=== PATIENT | male | born 1935 | race Caucasian/White ===

== ENCOUNTER 2017-07-08 00:36 | Inpatient (IN) | payer MEDICARE, BC, MEDICAID ==
[2017-07-08 01:22] LABS: Hematocrit 38.6 % (42.0-52.0); Hemoglobin 13.7 gm/dL (13.5-18.0); Mean Cell Volume 93.2 fl (78-100); Mean Corpuscular Hemoglobin 33.1 pg (27-31); Mean Corpuscular Hgb Conc 35.5 g/dl (32-36); Mean Platelet Volume 9.5 fl (6.0-9.5); Neutrophil # 7.4 K/mm3 (1.3-6.0); Neutrophil % 78.4 % (42-75.0); Platelet Count 151 K/mm3 (150-450); Red Blood Count 4.14 M/mm3 (4.7-6.0); Red Cell Distribution Width 13.6 % (11.5-14.0); White Blood Count 9.4 K/mm3 (4.0-10.5)
[2017-07-08 01:35] LABS: Prothrombin Time (Patient) 10.7 Seconds (9.0-11.0)
[2017-07-08 01:37] LABS: Albumin * 3.6 gm/dl (3.4-5.0); Anion Gap 14.9 mmol/L (6.8-13.8); BUN/Creatinine Ratio 16.8 (9.0-21.6); Bilirubin, Total 1.1 mg/dL (0.0-1.1); Ca. Corrected For Albumin 8.6 mg/dL (8.4-10.2); Calcium * 8.6 mg/dL (7.9-10.9); Carbon Dioxide 23.8 mmol/L (24-32.6); INR 1.07 INR (0.90-1.10); Partial Thrombolplastin Time 24.7 Seconds (24-32); Potassium 3.7 mmol/L (3.4-4.6); Total Protein 7.6 gm/dL (6.2-8.2)
--- NOTE | 2017-07-08 01:44 | ERNOTE ---
Lower Extremity HPI - Narrative Date of Service: 07/08/17 - General Lower Extremities Pain: hip: right Time Seen by Provider: 07/08/17 01:00 Source: patient, EMS Exam Limitations: no limitations - Immun/Allergies/Home Medications Immunizations: IMMUNIZATION HX Immunizations Up to Date Yes History of Influenza Vaccine Yes Hx Pneumococcal Vaccination Yes Allergies/Adverse Reactions: Allergies Allergy/AdvReac Type Severity Reaction Status Date / Time No Known Allergies Allergy Unverified 07/08/17 00:47 Home Medications: HOME MEDICATIONS Esomeprazole Magnesium [Nexium] 40 mg PO 07/08/17 [Last Taken Unknown] Gemfibrozil [Lopid] 600 mg PO BID 07/08/17 [Last Taken Unknown] HYDROcodone/ACETAMINOPHEN [Hydrocodon-Acetaminoph 7.5-325] 1 each PO 07/08/17 [ Last Taken Unknown] Hydrochlorothiazide 12.5 mg PO 07/08/17 [Last Taken Unknown] Ibuprofen [Motrin] 600 mg PO 07/08/17 [Last Taken Unknown] Levothyroxine Sodium [Levo-T] 112 mcg PO 07/08/17 [Last Taken Unknown] Sennosides [Senna Lax] 8.6 mg PO 07/08/17 [Last Taken Unknown] Sildenafil Citrate [Viagra] 100 mg PO 07/08/17 [Last Taken Unknown] Simvastatin 20 mg PO 07/08/17 [Last Taken Unknown] Valsartan/Hydrochlorothiazide [Diovan Hct 320-25 mg Tablet] 1 each PO 07/08/17 [ Last Taken Unknown] - History of Present Illness Narrative: patient [place] and tripped on curb hit head and right hip, sustained fracture hip and contusiion to head Occurred: this evening Location of Incident: other - street Method of Injury: Reports: fell, direct blow Reason for Fall: Reports: slipped, tripped Loss of Consciousness: Reports: no loss of consciousness Modifying Factors - (Improves): Reports: rest Modifying Factors - (Worsens): Reports: pain medication Associated Symptoms: Reports: unable to bear weight Other Injuries: Reports: head Subsequent Symptoms: Reports: other - none Prior Treament: Reports: recently seen, treated by physician, other - transferred from [facility] Review of Systems - Narrative Narrative: unremarkable - Review of Systems Constitutional: Present: See HPI EYE: Present: see HPI ENT: Present: See HPI, other - contusiion to right forhead Respiratory: Present: no symptoms reported Cardiology: Present: no symptoms reported Gastrointestinal/Abdominal: Present: no symptoms reported Genitourinary: Present: no symptoms reported Musculoskeletal: Present: See HPI Skin: Present: See HPI Neurological: Present: no symptoms reported Endocrine: Present: no symptoms reported Hematologic/Lymphatic: Present: no symptoms reported Psych: Present: no symptoms reported All Other Systems: All systems neg except as marked - Narrative Narrative: unremarkable - Patient's Past Medical History Patient History - Medical: GERD, Hypothyroidism Patient History - Cardiac/Respiratory: Hypertension, Hyperlipidemia Patient History - Cancer: No Hx of Cancer Patient History - Surgical Procedures: Total Hip Replacement, Total Knee Replacement, Orthopedic Patient History - Other: None - Family History Family History:: no untoward family reactions to anesthesia, no familial bleeding tendencies, no family history of clotting disorders, no family history of premature - Social History Living Situations: alone Psych History: No pertinent hx Smoking Status: Former smoker Have you smoked in the past 12 months: No Do you dip or chew tobacco: No Patient requests Smoking Cessation Consult: No Initiate information on Smoking Cessation: No Alcohol Use: occasionally Drug Use: none - Immunizations Immunizations Up to Date: Yes Hx Pneumococcal Vaccination: Yes History of Influenza Vaccine: Yes Physical Exam - Physical Exam General Appearance: Present: mild distress Head Exam: Present: contusions, other - contusion to right forhead Eye Exam: Normal inspection: bilateral, PERRL: bilateral, EOMI: bilateral Ears, Nose, Throat: Present: normal ENT inspection Neck: Present: normal inspection, nontender Respiratory: Present: no respiratory distress, normal breath sounds, no accessory muscle use, chest nontender, lungs clear Cardiovascular/Chest: Present: regular rate, rhythm, no murmur, normal peripheral pulses Peripheral Pulses: N=norm/S=strong/W=weak/B=bound/A=absent: Carotid (R): Normal , Carotid (L): Normal, Radial (R): Normal, Radial (L): Normal, Femoral (R): Normal, Femoral (L): Normal, Dorsalis-pedis (R): Normal, Dorsalis-pedis (L): Normal Gastrointestinal/Abdominal: Present: normal bowel sounds, nontender, nondistended, soft, no organomegaly Back Exam: Present: normal inspection, normal range of motion, no CVA tenderness , no vertebral tenderness Extremity Exam: Present: normal except - - pain and tenderness to right greater trochanter no deformity noted Neurological Exam: Present: alert, oriented, normal mood/affect, no motor/ sensory deficits DTR: N=norm/NB=norm/brisk/A=abs/DD=dull/dimin/HC=hyperactive: Bicep (R): Normal , Bicep (L): Normal, Tricep (R): Normal, Tricep (L): Normal, Knee (R): Normal, Knee (L): Normal, Ankle (R): Normal, Ankle (L): Normal Skin Exam: Present: normal color, warm/dry ED Progress - Date and Time Seen: Date and Time: 07/08/17 01:41 condition unchanged, discussed case with dr ortiz accepted for admission, case discussed ith hospitalist who also acepts patient - Results and Orders Patient's Lab Results:: I have reviewed the patient's lab results. - Vital Signs Patient's Vital Signs:: I have reviewed the patient's vital signs. Vital Signs: Vital Signs 07/08/17 00:40 Temperature 36.6 C Pulse Rate 60 Respiratory 14 Rate Blood Pressure 130/60 O2 Sat by Pulse 94 Oximetry - EKG EKG: NSR EKG read: Interp. by me - X-Ray X-Ray #1 X-Ray: chest Interpretation: Interp. by me - no acute process, ct of head and pelvis also reviewed right fx hip noted - Progress/Reassessment Chief Complaint: Hip Pain/Injury - Transfer of Care Expected Disposition: Admit Plan - Plan Plan: to be admitted Departure Clinical Impression: Hip fracture, right - Departure Disposition: Still a patient Condition: Fair
[2017-07-08] MEDS ORDERED: NORMAL SALINE 1,000 ML IV PRN (01:53)
[2017-07-08] MEDS ORDERED: HYDROmorphone HCL 1 MG/ML DISP.SYRIN IV PRN (01:53)
--- NOTE | 2017-07-08 02:45 | HP ---
Chief Complaint - Chief Complaint Date of Service: 07/08/17 Time of Service: 02:44 Chief Complaint: Right hip pain s/p mechanical fall History of Present Illness: 81 years old white male adm to the [facility] as a transfer from [facility] for orthopedic service. pt report right hip pain and hematoma to head. PMH significant for HTN and hypothyroidism.pt stated he was walking across the street to meet his friend for a drink at the bar.The side of his shoe stepped on the curb, he lost his balance and fell on right side and hitting his head. It took him a while to get up, then he walked across the street to the bar, used the bathroom then called his friend. His friend with another person help him from a seat and took him home. While at home the hip pain was moderate the pain to the head was worst and he now had a very large right lateral frontal hematoma over right eye. His friend encouraged him to visit the ER. 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 mild age related atrophy. Right frontal scalp hematoma. pt is medially appropriate for plan intervention. RCRI class I risk, plan of care discussed with pt he verbalized understanding and agrees. - Patient's Past Medical History Patient History - Medical: GERD, Hypothyroidism Patient History - Cardiac/Respiratory: Hypertension, Hyperlipidemia Patient History - Cancer: No Hx of Cancer Patient History - Surgical Procedures: Total Hip Replacement, Total Knee Replacement, Orthopedic Patient History - Other: None - Family History Family History:: no untoward family reactions to anesthesia, no familial bleeding tendencies, no family history of clotting disorders, no family history of premature - Family History Mother Family History - Medical: , No pertinent hx Family History - Cardiac/Respiratory: CHF Family History - Cancer: History Unknown Father Family History - Medical: , History Unknown Family History - Cardiac/Respiratory: History Unknown Family History - Cancer: No pertinent family hx - Social History Living Situations: alone Psych History: No pertinent hx Smoking Status: Former smoker Have you smoked in the past 12 months: No Do you dip or chew tobacco: No Patient requests Smoking Cessation Consult: No Initiate information on Smoking Cessation: No Alcohol Use: occasionally Drug Use: none - Immunizations Immunizations Up to Date: Yes Hx Pneumococcal Vaccination: Yes History of Influenza Vaccine: Yes Allergies/Adverse Reactions: Allergies Allergy/AdvReac Type Severity Reaction Status Date / Time No Known Allergies Allergy Verified 07/08/17 02:51 Home Medications: HOME MEDICATIONS Atorvastatin Calcium 40 mg PO HS 07/08/17 [Last Taken Unknown] FLUoxetine HCL [Fluoxetine HCl] 20 mg PO DAILY 07/08/17 [Last Taken Unknown] Levothyroxine Sodium [Levo-T] 112 mcg PO DAILY 07/08/17 [Last Taken Unknown] Meloxicam 7.5 mg PO DAILY 07/08/17 [Last Taken Unknown] Omeprazole 40 mg PO DAILY 07/08/17 [Last Taken Unknown] Propranolol HCl 20 mg PO DAILY 07/08/17 [Last Taken Unknown] Ranitidine HCl [Zantac] 300 mg PO HS 07/08/17 [Last Taken Unknown] Sildenafil Citrate [Viagra] 100 mg PO DAILY PRN 07/08/17 [Last Taken Unknown] Tamsulosin HCl [Flomax] 1 cap PO HS 07/08/17 [Last Taken Unknown] Valsartan 320 mg PO DAILY 07/08/17 [Last Taken Unknown] traMADol HCL [Tramadol HCl] 50 mg PO Q6H PRN 07/08/17 [Last Taken Unknown] Exam - Exam Vital Signs: Vital Signs - Last Taken Temp 36.4 C L 07/08/17 02:18 Pulse 58 L 07/08/17 02:18 Resp 18 07/08/17 02:18 BP 127/65 07/08/17 02:18 Pulse Ox 97 07/08/17 02:18 Constitutional: Present: Alert, Oriented x3, Cooperative, No distress, Elderly, Looks Younger than stated age ENT Exam: Present: hard of hearing, moist mucous membranes, other - Right lateral frontal scalp subcutaneous hematoma Eye Exam: bilateral eye: normal inspection Neck: Present: full range of motion Back Exam: Present: normal inspection Breasts: Present: Exam deferred Respiratory: Present: chest non-tender, lungs clear, normal breath sounds, no respiratory distress, no accessory muscle use Cardiovascular/Chest: Present: normal peripheral pulses, regular rate, rhythm, no chest tenderness, no edema, no JVD, no murmur Peripheral Pulses: carotid (R): 3+, carotid (L): 3+ Abdomen: Present: Normal bowel sounds, soft, nontender, nondistended, no rebound tenderness /Rectal: Present: Exam deferred Extremity: Present: no calf tenderness, normal capillary refill Skin Exam: Present: other - hematoma forehead Neurologic: Present: alert, oriented x 3, abnormal gait Appearance: Present: appropriate appearance, appropriate insight Eye contact: Present: cooperative, good eye contact Thoughts: Present: normal thought pattern, no apparent hallucination Diagnostic Studies: Laboratory Results WBC 9.4 K/mm3 (4.0-10.5) 07/08/17 01:23 RBC 4.14 M/mm3 (4.7-6.0) L 07/08/17 01:23 Hgb 13.7 gm/dL (13.5-18.0) 07/08/17 01:23 Hct 38.6 % (42.0-52.0) L 07/08/17 01:23 MCV 93.2 fl (78-100) 07/08/17 01:23 MCH 33.1 pg (27-31) H 07/08/17 01:23 MCHC 35.5 g/dl (32-36) 07/08/17 01:23 RDW 13.6 % (11.5-14.0) 07/08/17 01:23 Plt Count 151 K/mm3 (150-450) 07/08/17 01:23 MPV 9.5 fl (6.0-9.5) 07/08/17 01:23 Immature Gran % (Auto) 0.40 % (0.001-0.429) 07/08/17 01:23 Immature Gran # (Auto) 0.04 K/mm3 (0.000-0.0310) H 07/08/17 01:23 Neutrophils % 78.4 % (42-75.0) H 07/08/17 01:23 Lymphocytes % 10.6 % (20-51) L 07/08/17 01:23 Monocytes % 8.4 % (0.0-9) 07/08/17 01:23 Eosinophils % 1.8 % (0.0-3.0) 07/08/17 01:23 Basophils % 0.4 % (0.0-1.0) 07/08/17 01:23 Nucleated RBC % 0.0 k/mm3 (0-1) 07/08/17 01:23 Neutrophils # 7.4 K/mm3 (1.3-6.0) H 07/08/17 01:23 Lymphocytes # 1.0 k/mm3 (1.5-3.5) L 07/08/17 01:23 Monocytes # 0.8 k/mm3 (0.0-1.0) 07/08/17 01:23 Eosinophils # 0.2 k/mm3 (0.0-0.7) 07/08/17 01:23 Absolute Basophils 0.0 k/mm3 (0.0-0.1) 07/08/17 01:23 PT 10.7 Seconds (9.0-11.0) 07/08/17 01:23 INR (Anticoag Therapy) 1.07 INR (0.90-1.10) 07/08/17 01:23 PTT (Belen) 24.7 Seconds (24-32) 07/08/17 01:23 Sodium 136 mmol/L (132-142) 07/08/17 01:23 Plasma Sodium 136 mmol/L (130-142) 07/08/17 01:23 Potassium 3.7 mmol/L (3.4-4.6) 07/08/17 01:23 Chloride 101 mmol/L (97-106) 07/08/17 01:23 Carbon Dioxide 23.8 mmol/L (24-32.6) L 07/08/17 01:23 Anion Gap 14.9 mmol/L (6.8-13.8) H 07/08/17 01:23 BUN 20 mg/dL (6-23) 07/08/17 01:23 Creatinine 1.19 mg/dL (0.4-1.4) 07/08/17 01:23 Est GFR (Non-Af Amer) 63 mL/min (60-130) 07/08/17 01:23 BUN/Creatinine Ratio 16.8 (9.0-21.6) 07/08/17 01:23 Random Glucose 111 mg/dL (70-110) H 07/08/17 01:23 Calcium 8.6 mg/dL (7.9-10.9) 07/08/17 01:23 Calcium Adj for Albumin 8.6 mg/dL (8.4-10.2) 07/08/17 01:23 Total Bilirubin 1.1 mg/dL (0.0-1.1) 07/08/17 01:23 AST 19 U/L (0-48) 07/08/17 01:23 ALT 22 U/L (19-67) 07/08/17 01:23 Alkaline Phosphatase 81 U/L (50-170) 07/08/17 01:23 Total Protein 7.6 gm/dL (6.2-8.2) 07/08/17 01:23 Albumin 3.6 gm/dl (3.4-5.0) 07/08/17 01:23 X-ray right hip: mildly impacted fracture right femoral neck CT head:Mild periventricular chronic small vessel ischemia disease. mild age related atrophy. Right frontal scalp hematoma Assessment/Plan - Narrative Narrative: Right hip fracture- secondary to mechanical fall seen on X-ray right hip: mildly impacted fracture right femoral neck Ortho following, plan for possible intervention later today. IV/ oral pain medications Keep NPO EKG-NSR, CXR: No acute cardiopulmonary findings Hematoma and contusion Right lateral frontal scalp hematoma Neuro intact Chronic conditions- stable BPH Hyperlipidemia GERD Hypertension Hypothyriodism Code status: Full GI ppx: Omeprazole VTE ppx: SCD and ortho for post-op VTE management Time 40 minutes and case discussed with Dr Lockett - Assessment/Plan (1) Hip fracture, right Problem: Acute Qualifiers: Encounter type: initial encounter Fracture type: closed Qualified Code(s) : S72.001A - Fracture of unspecified part of neck of right femur, initial encounter for closed fracture (2) Hypertension Problem: Chronic Qualifiers: Hypertension type: essential hypertension Qualified Code(s): I10 - Essential (primary) hypertension (3) Hyperlipidemia Problem: Chronic (4) Hypothyroidism Problem: Chronic (5) GERD (gastroesophageal reflux disease) Problem: Chronic (6) BPH (benign prostatic hyperplasia) Problem: Chronic (7) Hematoma and contusion Problem: Acute
--- NOTE | 2017-07-08 08:57 | CONS ---
[facility] - General Date of Service: 07/08/17 Narrative: Mr. Arriola is an 81-year-old gentleman who was walking when he fell onto his right hip. He had right hip pain but was able to ambulate a short distance further when he had increasing hip pain and also sustained an injury to his head. He was seen in outside emergency department and found to have a valgus impacted minimally comminuted well aligned right femoral neck fracture. He also had a contusion to his forehead which was worked up with CT scan as well as by the emergency department without any major acute trauma or need for any intervention for this. 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 He lives independently and is a community ambulator Source: patient Exam Limitations: no limitations - History of Present Illness Timing/Duration: 24 hours Severity: moderate Modifying Factors - (Worsens): Reports: movement Modifying Factors - (Improves): Reports: immobilization, medication Associated Symptoms: denies symptoms Allergies/Adverse Reactions: Allergies No Known Allergies Allergy (Verified 07/08/17 02:51) Home Medications: Home Medications Medication Instructions Recorded Last Taken Atorvastatin Calcium 40 mg PO HS 07/08/17 Unknown FLUoxetine HCL [Fluoxetine HCl] 20 mg PO DAILY 07/08/17 Unknown Levothyroxine Sodium [Levo-T] 112 mcg PO DAILY 07/08/17 Unknown Meloxicam 7.5 mg PO DAILY 07/08/17 Unknown Omeprazole 40 mg PO DAILY 07/08/17 Unknown Propranolol HCl 20 mg PO DAILY 07/08/17 Unknown Ranitidine HCl [Zantac] 300 mg PO HS 07/08/17 Unknown Sildenafil Citrate [Viagra] 100 mg PO DAILY PRN 07/08/17 Unknown Tamsulosin HCl [Flomax] 1 cap PO HS 07/08/17 Unknown Valsartan 320 mg PO DAILY 07/08/17 Unknown traMADol HCL [Tramadol HCl] 50 mg PO Q6H PRN 07/08/17 Unknown - Patient's Past Medical History Patient History - Medical: GERD, Hypothyroidism Patient History - Cardiac/Respiratory: Hypertension, Hyperlipidemia Patient History - Cancer: No Hx of Cancer Patient History - Surgical Procedures: Total Hip Replacement, Total Knee Replacement, Orthopedic Patient History - Other: None - Family History Family History:: no untoward family reactions to anesthesia, no familial bleeding tendencies, no family history of clotting disorders, no family history of premature - Family History Mother Family History - Medical: , No pertinent hx Family History - Cardiac/Respiratory: CHF Family History - Cancer: History Unknown Father Family History - Medical: , History Unknown Family History - Cardiac/Respiratory: History Unknown Family History - Cancer: No pertinent family hx - Social History Living Situations: alone Psych History: No pertinent hx Smoking Status: Former smoker Have you smoked in the past 12 months: No Do you dip or chew tobacco: No Patient requests Smoking Cessation Consult: No Initiate information on Smoking Cessation: No Alcohol Use: occasionally Drug Use: none - Immunizations Immunizations Up to Date: Yes Hx Pneumococcal Vaccination: Yes History of Influenza Vaccine: Yes Medications - Medications Current Medications: Current Medications Sodium Chloride (Sodium Chloride 0.9%) 1,000 mls @ 125 mls/hr IV .Q8H PRN PRN Reason: HYDRATION Stop: 08/07/17 01:54 Last Admin: 07/08/17 03:16 Dose: 125 mls/hr Review of Systems - Review of Systems Narrative: Negative except for above Physical Examination - Exam Narrative: He's got a abrasion over his right frontal forehead but no gross deformity. Right lower extremity: No laceration, ecchymosis, or abrasion over his hip. He has a grossly normal-appearing leg. He has a palpable dorsalis pedis pulse. Sensation is intact light touch. He is able to flex and extend his knee and ankle and toes with mild pain but no limitations. He has pain with any leg roll. His thigh is soft. Vital Signs: Vital Signs - Last Taken Temp 36.4 C L 07/08/17 06:22 Pulse 54 L 07/08/17 06:22 Resp 14 07/08/17 06:22 BP 146/70 07/08/17 06:22 Pulse Ox 91 07/08/17 06:22 O2 Oxygen Delivery Method Room Air Constitutional: Present: Alert, Oriented x3 - Results and Findings: Narrative: AP pelvis 2 views of right hip: Valgus impacted well aligned right femoral neck fracture. Left hip cemented hemiarthroplasty. No signs of advanced arthrosis or other fracture. - Assessments/Findings (1) Hip fracture, right Diagnosis(s): The plan is for percutaneous fixation of the right hip. The risks, benefits, alternatives of treatment were discussed with the patient. He would like to proceed. He will receive IV Ancef preoperatively for antibiotics. He will need 6 weeks of postoperative DVT prophylaxis. The plan is to proceed today if okay from the medical standpoint. We will continue to follow as a consult. Problem: Acute Qualifiers: Encounter type: initial encounter Fracture type: closed Qualified Code(s) : S72.001A - Fracture of unspecified part of neck of right femur, initial encounter for closed fracture
[2017-07-08] MEDS ORDERED: PROPRANOLOL HCL 10 MG TABLET PO ONE ×2 (09:09→10:30)
[2017-07-08] MEDS: LOSARTAN POTASSIUM 50 MG TABLET PO SCH (09:20)
[2017-07-08] MEDS: FLUoxetine HCL 20 MG CAPSULE PO SCH (09:24)
[2017-07-08] MEDS: PANTOPRAZOLE SODIUM 40 MG TABLET.EC PO SCH (09:24)
[2017-07-08] MEDS: PROPRANOLOL HCL 20 MG TABLET PO SCH (09:24)
[2017-07-08] MEDS: LEVOTHYROXINE SODIUM 112 MCG TABLET PO SCH (09:25)
[2017-07-08] MEDS: POTASSIUM CHLORIDE 20 MEQ in DEXTROSE 5%-NORMAL SALINE 990 ML IV SCH (10:25)
[2017-07-08] MEDS ORDERED: ceFAZolin SODIUM 2 GM in DEXTROSE 5 % IN WATER 50 ML IV PRN ×2 (13:00)
[2017-07-08] MEDS ORDERED: POTASSIUM CHLORIDE 20 MEQ in DEXTROSE 5%-NORMAL SALINE 1,000 ML IV ONE (13:55)
[2017-07-08] MEDS ORDERED: RINGER'S SOLUTION,LACTATED 1,000 ML IV ONE ×3 (14:00→15:20)
[2017-07-08] MEDS ORDERED: ceFAZolin SODIUM 1 GM VIAL IV ONE (14:25)
--- NOTE | 2017-07-08 15:01 | POSTOP NO ---
Date of Surgery: 07/08/17 Patient Tolerated the Procedure: Well Post Operative Diagnosis/Procedures: It Business Analyst: Vladimir Wilhelm PA-C Post-operative Diagnosis: Right nondisplaced femoral neck fracture Finding: Above Procedure: Percutaneous cannulated screw fixation of right femoral neck fracture with intraoperative interpretation of x-rays Estimated Blood Loss: Minimal Specimens: None
[2017-07-08] MEDS ORDERED: ACETAMINOPHEN 500 MG TABLET PO PRN (15:06)
[2017-07-08] MEDS ORDERED: MAGNESIUM HYDROXIDE 30 ML UDC PO PRN (15:06)
[2017-07-08] MEDS ORDERED: ONDANSETRON HCL/PF 2 MG/ML VIAL IV PRN (15:06)
[2017-07-08] MEDS ORDERED: MAG HYDROX/ALUMINUM HYD/SIMETH 30 ML UDC PO PRN (15:06)
--- NOTE | 2017-07-08 15:06 | OR ---
Operative Report - Dictated Report Narrative: Date: 07/08/2017 Surgeon: Raghav Anderson M.D. Eyeglass Assembler: Vladimir Wilhelm PA-C Preoperative diagnosis: Right valgus impacted subcapital femoral neck fracture Postoperative diagnosis: Right valgus impacted subcapital femoral neck fracture Intertrochanteric femur fracture Operations and procedures: 1. Percutaneous fixation of right subcapital femoral neck fracture 2. Intraoperative interpretation of radiographs Anesthesia: Spinal Specimens: None Estimated blood loss: Minimal Retained implants: [employer] 7.0 mm partially threaded cancellus screws 90 mm 2, 95 mm 1 Complications: None Indications for procedure: Mr. Arriola is an 81-year-old gentleman who injured the right leg after a ground -level fall in the community. They were admitted to the hospital after being evaluated in the emergency department. Once the medical provider felt that they were stable for surgical treatment, the risks and benefits alternatives were discussed. The risks of , blood clots, bleeding, infection, nerve/ tendon/blood vessel injury, malunion, nonunion, failure of implants, painful implants, arthrosis, and need for additional procedures were discussed. The extremity was marked and consent was obtained on the floor. Procedure: After marking the operative extremity on the floor, the patient was taken to the operating room. A timeout was performed. IV antibiotics consisting of Ancef were administered. A spinal anesthetic was induced by anesthesia, and the patient was then placed onto a fracture table with a well-padded perineal post. The nonoperative leg was placed in a well-padded traction boot in slight extension without any traction with an SCD on the leg. The operative leg was placed in a well-padded boot. No reduction maneuver or traction was placed as the fracture was nondisplaced. Preliminary images were attained utilizing C- arm in both the AP and lateral views. This confirmed that we had obtained adequate visualization of the fracture as well as reduction. Next the hip was then prepped and draped in a standard sterile fashion. Using C-arm for guidance, 3 guidewires were placed and an anterior superior subcortical centered on the femoral head, posterior superior subcortical centered on the femoral head, and a inferior subcortical centered on the femoral head positions. These were in order to reach to subcortical bone in the femoral neck as well as in order to obtain maximum penetration of the femoral head without penetrating the joint. These were then measured and the lateral cortex was drilled. They were then placed and secured to the bone. C- arm was utilized in order to confirm there is no displacement or malpositioning of these screws. They were then sequentially tightened and had good purchase. Final images were obtained. The deep fascia was closed with 0 Vicryl, the subcutaneous tissue with 3-0 Vicryl, and the skin was closed with merlyn. Sterile dressings of Xeroform, 4 x 4, and tape were applied. All sponge, sharp , and instrument counts were correct prior to closing the wounds. The patient was then awoken and transferred to the postanesthesia care unit in stable condition.
[2017-07-08] MEDS: WARFARIN SODIUM 5 MG TABLET PO SCH (17:35)
[2017-07-08] MEDS: TAMSULOSIN HCL 0.4 MG CAP.SR.24H PO SCH (17:35)
[2017-07-08] MEDS: ceFAZolin SODIUM 1 GM in DEXTROSE 5 % IN WATER 100 ML IV SCH ×4 (17:36→23:50)
[2017-07-08] MEDS: FAMOTIDINE 20 MG TABLET PO SCH (23:47)
[2017-07-08] MEDS: ATORVASTATIN CALCIUM 40 MG TABLET PO SCH (23:47)
[2017-07-08] MEDS: SENNOSIDES/DOCUSATE SODIUM 1 TAB TABLET PO SCH (23:48)
[2017-07-08] MEDS: HYDROcodone/ACETAMINOPHEN 1 EACH TABLET PO PRN (23:49)
[2017-07-09] MEDS: POTASSIUM CHLORIDE 20 MEQ in DEXTROSE 5%-NORMAL SALINE 990 ML IV SCH ×2 (00:06→11:38)
[2017-07-09] MEDS: ceFAZolin SODIUM 1 GM in DEXTROSE 5 % IN WATER 100 ML IV SCH ×2 (04:29)
[2017-07-09 05:41] LABS: Hematocrit 36.1 % (42.0-52.0); Hemoglobin 12.6 gm/dL (13.5-18.0); Mean Cell Volume 94.3 fl (78-100); Mean Corpuscular Hemoglobin 32.9 pg (27-31); Mean Corpuscular Hgb Conc 34.9 g/dl (32-36); Mean Platelet Volume 9.4 fl (6.0-9.5); Platelet Count 127 K/mm3 (150-450); Red Blood Count 3.83 M/mm3 (4.7-6.0); Red Cell Distribution Width 13.6 % (11.5-14.0); White Blood Count 5.5 K/mm3 (4.0-10.5)
[2017-07-09 05:51] LABS: Anion Gap 11.5 mmol/L (6.8-13.8); BUN/Creatinine Ratio 9.9 (9.0-21.6); Carbon Dioxide 25.2 mmol/L (24-32.6); Estimated Creat Clear 48.7; Potassium 3.7 mmol/L (3.4-4.6)
[2017-07-09 05:52] LABS: Prothrombin Time (Patient) 11.4 Seconds (9.0-11.0)
[2017-07-09 06:00] LABS: INR 1.14 INR (0.90-1.10)
--- NOTE | 2017-07-09 06:26 | PN ---
Subjective - Date and Time Seen Date: 07/09/17 Time: 06:23 Subjective Narrative: patient seen today no acute distress, he denies chest pain, shortness of breath , calf pain and stated pain is well tolerated. Objective - Review of Systems Generalized/Overall Review: Reports: No Symptoms Reported EENTM: Reports: No Symptoms Reported Respiratory: Reports: No Symptoms Reported Cardiac: Reports: No Symptoms Reported Abdominal: Reports: No Symptoms Reported Genitourinary Symptoms: Reports: No Symptoms Reported Musculoskeletal Complaints: Reports: No Symptoms Reported Neurological: Reports: No Symptoms Reported Skin: Reports: No Symptoms Reported Endocrine: Reports: No Symptoms Reported - Vitals Vitals: Last Vital Signs Temp 36.7 C 07/09/17 05:54 Pulse 57 L 07/09/17 05:54 Resp 20 07/09/17 05:54 BP 132/70 07/09/17 05:54 Pulse Ox 95 07/09/17 05:54 - Abnormal Lab Findings Abnormal Lab Findings: Abnormal Lab Results 07/09/17 07/09/17 07/09/17 Range/Units 05:30 05:30 05:30 RBC 3.83 L (4.7-6.0) M/mm3 Hgb 12.6 L (13.5-18.0) gm/dL Hct 36.1 L (42.0-52.0) % MCH 32.9 H (27-31) pg Plt Count 127 L (150-450) K/mm3 PT 11.4 H (9.0-11.0) Seconds INR (Anticoag Therapy) 1.14 H (0.90-1.10) INR Chloride 107 H (97-106) mmol/L Random Glucose 115 H (70-110) mg/dL - Exam Constitutional: Present: Alert, Oriented x3, Cooperative, Well developed, No distress, Elderly ENT Exam: Present: hard of hearing Neck: Present: full range of motion Breasts: Present: Exam deferred Respiratory: Present: chest non-tender, lungs clear, normal breath sounds, no respiratory distress Cardiovascular/Chest: Present: normal peripheral pulses, no chest tenderness, no edema, no gallop, no murmur, bradycardia Abdomen: Present: Normal bowel sounds, soft, nontender, nondistended /Rectal: Present: Exam deferred Extremity: Present: non-tender, normal inspection, no pedal edema, no calf tenderness, lower extremity edema, other - Limited range of motion s/p hip fracture Skin Exam: Present: warm/dry Neurologic: Present: oriented x 3 Appearance: Present: appropriate appearance Eye contact: Present: cooperative, good eye contact Cauti Physician Documentation - Urinary Catheter Management Urethral (Triana) Date of Insertion: 07/08/17 Time of Insertion: 10:00 Assessment/Plan Plan Narrative: 07/08/17 S/p Percutaneous fixation of right subcapital femoral neck fracture- Right hip fracture seen on X-ray right hip: mildly impacted fracture right femoral neck Ortho following IV/ oral pain medications Regular diet PT/Ot eval and treatment Chronic conditions- stable BPH Hyperlipidemia GERD Hypertension Hypothyriodism Hematoma and contusion-Resolving Right lateral frontal scalp hematoma Neuro intact Code status: Full GI ppx: Omeprazole VTE ppx: SCD, coumadin 5mg and lovenox Q24hr Time 15 minutes and case discussed with Dr Lockett - Problems/Diagnosis (1) Hip fracture, right Problem: Acute Qualifiers: Encounter type: initial encounter Fracture type: closed Qualified Code(s) : S72.001A - Fracture of unspecified part of neck of right femur, initial encounter for closed fracture (2) Hypertension Problem: Chronic Qualifiers: Hypertension type: essential hypertension Qualified Code(s): I10 - Essential (primary) hypertension (3) Hyperlipidemia Problem: Chronic (4) Hypothyroidism Problem: Chronic (5) GERD (gastroesophageal reflux disease) Problem: Chronic (6) BPH (benign prostatic hyperplasia) Problem: Chronic (7) Hematoma and contusion Problem: Acute
--- NOTE | 2017-07-09 07:41 | PN ---
Subjective - Date and Time Seen Date: 07/09/17 Subjective Narrative: No acute events overnight. Pain controlled this am. No complaints or concerns. Objective - Vitals Vitals: Last Vital Signs Temp 36.7 C 07/09/17 05:54 Pulse 57 L 07/09/17 05:54 Resp 20 07/09/17 05:54 BP 132/70 07/09/17 05:54 Pulse Ox 95 07/09/17 05:54 - Abnormal Lab Findings Abnormal Lab Findings: Abnormal Lab Results 07/09/17 07/09/17 07/09/17 Range/Units 05:30 05:30 05:30 RBC 3.83 L (4.7-6.0) M/mm3 Hgb 12.6 L (13.5-18.0) gm/dL Hct 36.1 L (42.0-52.0) % MCH 32.9 H (27-31) pg Plt Count 127 L (150-450) K/mm3 PT 11.4 H (9.0-11.0) Seconds INR (Anticoag Therapy) 1.14 H (0.90-1.10) INR Chloride 107 H (97-106) mmol/L Random Glucose 115 H (70-110) mg/dL - Exam Exam Narrative: Gen: A&O, NAD Resp: breathing comfortably MSK: RLE--> dressings c/d/i, foot warm and well perfused, cap refill <3 sec, SILT, 5/5 EHL/FHL/DF/PF Cauti Physician Documentation - Urinary Catheter Management Urethral (Triana) Date of Insertion: 07/08/17 Time of Insertion: 10:00 Assessment/Plan Plan Narrative: 81 yo M s/p cannulated screw fixation of a R valgus impacted femoral neck fracture, POD #1. - 50% weight bearing, ROM as tolerated - reg diet - oral pain meds - PT/OT - DVT ppx: teds/SCDs/lovenox - continue medical co-management - dispo: continue inpatient care, likely d/c to SNF once ready
[2017-07-09] MEDS: HYDROcodone/ACETAMINOPHEN 1 EACH TABLET PO PRN ×2 (08:19→20:29)
[2017-07-09] MEDS: LOSARTAN POTASSIUM 50 MG TABLET PO SCH (08:22)
[2017-07-09] MEDS: PROPRANOLOL HCL 20 MG TABLET PO SCH (08:25)
[2017-07-09] MEDS: PANTOPRAZOLE SODIUM 40 MG TABLET.EC PO SCH (08:26)
[2017-07-09] MEDS: LEVOTHYROXINE SODIUM 112 MCG TABLET PO SCH (08:27)
[2017-07-09] MEDS: FLUoxetine HCL 20 MG CAPSULE PO SCH (08:27)
[2017-07-09] MEDS: ENOXAPARIN SODIUM 40 MG/0.4 ML SYRG SC SCH (14:23)
[2017-07-09] MEDS: WARFARIN SODIUM 5 MG TABLET PO SCH (17:01)
[2017-07-09] MEDS: TAMSULOSIN HCL 0.4 MG CAP.SR.24H PO SCH (17:02)
[2017-07-09] MEDS: FAMOTIDINE 20 MG TABLET PO SCH (20:30)
[2017-07-09] MEDS: ATORVASTATIN CALCIUM 40 MG TABLET PO SCH (20:31)
[2017-07-09] MEDS: SENNOSIDES/DOCUSATE SODIUM 1 TAB TABLET PO SCH (20:31)
--- NOTE | 2017-07-10 05:37 | PN ---
Subjective - Date and Time Seen Date: 07/10/17 Time: 05:33 Subjective Narrative: patient seen today in bed no acute distress, pt denies shortness of breath, cough, or calf pain. He stated he will have help at home upon discharge and anticipating rehab. Objective - Review of Systems Generalized/Overall Review: Reports: No Symptoms Reported EENTM: Reports: No Symptoms Reported Respiratory: Reports: No Symptoms Reported Cardiac: Reports: No Symptoms Reported Abdominal: Reports: No Symptoms Reported Genitourinary Symptoms: Reports: No Symptoms Reported Musculoskeletal Complaints: Reports: No Symptoms Reported Neurological: Reports: No Symptoms Reported Skin: Reports: No Symptoms Reported - Vitals Vitals: Last Vital Signs Temp 37.4 C 07/10/17 02:27 Pulse 61 07/10/17 02:27 Resp 16 07/10/17 02:27 BP 158/73 07/10/17 02:27 Pulse Ox 91 07/10/17 02:27 - Abnormal Lab Findings Abnormal Lab Findings: Abnormal Lab Results 07/09/17 07/09/17 07/09/17 Range/Units 05:30 05:30 05:30 RBC 3.83 L (4.7-6.0) M/mm3 Hgb 12.6 L (13.5-18.0) gm/dL Hct 36.1 L (42.0-52.0) % MCH 32.9 H (27-31) pg Plt Count 127 L (150-450) K/mm3 PT 11.4 H (9.0-11.0) Seconds INR (Anticoag Therapy) 1.14 H (0.90-1.10) INR Chloride 107 H (97-106) mmol/L Random Glucose 115 H (70-110) mg/dL - Exam Constitutional: Present: Alert, Oriented x3, Cooperative, No distress, Elderly ENT Exam: Present: hard of hearing, other - Right eye with some bruising at eye lid. lateral aspect of forehead with bruising and scab Neck: Present: full range of motion Respiratory: Present: chest non-tender, lungs clear, normal breath sounds, no respiratory distress Cardiovascular/Chest: Present: normal peripheral pulses, regular rate, rhythm, no chest tenderness, no edema, no gallop Abdomen: Present: Normal bowel sounds, soft, nontender /Rectal: Present: Exam deferred Extremity: Present: non-tender, normal inspection, no calf tenderness, other - Right hip percutaneous fixation Skin Exam: Present: normal color, warm/dry Neurologic: Present: oriented x 3 Appearance: Present: appropriate appearance Eye contact: Present: cooperative, good eye contact Cauti Physician Documentation - Urinary Catheter Management Urethral (Tanner) Date of Insertion: 07/08/17 Time of Insertion: 10:00 Date of Removal: 07/09/17 Time of Removal: 10:06 Assessment/Plan Plan Narrative: POD#2 S/p Percutaneous fixation of right subcapital femoral neck fracture- Right hip fracture seen on X-ray right hip: mildly impacted fracture right femoral neck Ortho following IV/ oral pain medications Regular diet PT/Ot eval and treatment Partial weight bearing Plan for rehab upon discharge Remove tanner cath Chronic conditions- stable BPH Hyperlipidemia GERD Hypertension Hypothyriodism Hematoma and contusion-Resolving Right lateral frontal scalp hematoma Neuro intact Code status: Full GI ppx: Omeprazole VTE ppx: SCD, coumadin 5mg and lovenox Q24hr Time 10 minutes and case discussed with Dr Lockett - Problems/Diagnosis (1) Hip fracture, right Problem: Acute Qualifiers: Encounter type: initial encounter Fracture type: closed Qualified Code(s) : S72.001A - Fracture of unspecified part of neck of right femur, initial encounter for closed fracture (2) Hypertension Problem: Chronic Qualifiers: Hypertension type: essential hypertension Qualified Code(s): I10 - Essential (primary) hypertension (3) Hyperlipidemia Problem: Chronic (4) Hypothyroidism Problem: Chronic (5) GERD (gastroesophageal reflux disease) Problem: Chronic (6) BPH (benign prostatic hyperplasia) Problem: Chronic (7) Hematoma and contusion Problem: Acute
[2017-07-10 05:48] LABS: Hematocrit 37.2 % (42.0-52.0); Hemoglobin 13.2 gm/dL (13.5-18.0); Mean Cell Volume 93.9 fl (78-100); Mean Corpuscular Hemoglobin 33.3 pg (27-31); Mean Corpuscular Hgb Conc 35.5 g/dl (32-36); Mean Platelet Volume 9.7 fl (6.0-9.5); Platelet Count 153 K/mm3 (150-450); Red Blood Count 3.96 M/mm3 (4.7-6.0); Red Cell Distribution Width 13.6 % (11.5-14.0); White Blood Count 6.1 K/mm3 (4.0-10.5)
[2017-07-10 05:58] LABS: Anion Gap 11.5 mmol/L (6.8-13.8); BUN/Creatinine Ratio 9.5 (9.0-21.6); Calcium * 8.4 mg/dL (7.9-10.9); Carbon Dioxide 25.2 mmol/L (24-32.6); Estimated Creat Clear 50.8; Potassium 3.7 mmol/L (3.4-4.6)
[2017-07-10 06:14] LABS: INR 1.2 INR (0.90-1.10)
[2017-07-10] MEDS: HYDROcodone/ACETAMINOPHEN 1 EACH TABLET PO PRN ×2 (06:48→22:57)
[2017-07-10] MEDS: POTASSIUM CHLORIDE 20 MEQ in DEXTROSE 5%-NORMAL SALINE 990 ML IV SCH (07:22)
--- NOTE | 2017-07-10 08:12 | PN ---
Subjective - Date and Time Seen Date: 07/10/17 Subjective Narrative: No events overnight. Pain controlled. Patient doing well with PT. Objective - Vitals Vitals: Last Vital Signs Temp 37.4 C 07/10/17 07:16 Pulse 61 07/10/17 07:16 Resp 16 07/10/17 07:16 BP 158/73 07/10/17 07:16 Pulse Ox 91 07/10/17 07:16 - Abnormal Lab Findings Abnormal Lab Findings: Abnormal Lab Results 07/10/17 07/10/17 Range/Units 05:30 05:30 RBC 3.96 L (4.7-6.0) M/mm3 Hgb 13.2 L (13.5-18.0) gm/dL Hct 37.2 L (42.0-52.0) % MCH 33.3 H (27-31) pg MPV 9.7 H (6.0-9.5) fl PT 12.0 H (9.0-11.0) Seconds INR (Anticoag Therapy) 1.20 H (0.90-1.10) INR - Exam Exam Narrative: MSK: RLE--> dressings c/d/i, minimal swelling, minimal TTP, 5/5 EHL/FHL/DF/PF, SILT, cap refill <3 sec Cauti Physician Documentation - Urinary Catheter Management Urethral (Triana) Date of Insertion: 07/08/17 Time of Insertion: 10:00 Date of Removal: 07/09/17 Time of Removal: 10:06 Assessment/Plan Plan Narrative: 81 yo M s/p cannulated screw fixation of a R valgus impacted femoral neck fracture, POD #2. - 50% weight bearing, ROM as tolerated - reg diet - oral pain meds - PT/OT - DVT ppx: teds/SCDs/lovenox - continue medical co-management - dispo: continue inpatient care, plan for d/c home with home health tomorrow
[2017-07-10] MEDS: PANTOPRAZOLE SODIUM 40 MG TABLET.EC PO SCH (08:31)
[2017-07-10] MEDS: LOSARTAN POTASSIUM 50 MG TABLET PO SCH (08:34)
[2017-07-10] MEDS: LEVOTHYROXINE SODIUM 112 MCG TABLET PO SCH (08:34)
[2017-07-10] MEDS: FLUoxetine HCL 20 MG CAPSULE PO SCH (08:34)
[2017-07-10] MEDS: PROPRANOLOL HCL 20 MG TABLET PO SCH (08:35)
[2017-07-10] MEDS ORDERED: BISACODYL 5 MG TABLET.DR PO ONE (12:16)
[2017-07-10] MEDS: ENOXAPARIN SODIUM 40 MG/0.4 ML SYRG SC SCH (13:50)
[2017-07-10] MEDS: WARFARIN SODIUM 5 MG TABLET PO SCH (16:26)
[2017-07-10] MEDS: TAMSULOSIN HCL 0.4 MG CAP.SR.24H PO SCH (16:26)
[2017-07-10] MEDS: ATORVASTATIN CALCIUM 40 MG TABLET PO SCH (20:45)
[2017-07-10] MEDS: SENNOSIDES/DOCUSATE SODIUM 1 TAB TABLET PO SCH (20:46)
[2017-07-10] MEDS: FAMOTIDINE 20 MG TABLET PO SCH (20:46)
[2017-07-11 05:32] LABS: Prothrombin Time (Patient) 14.2 Seconds (9.0-11.0)
[2017-07-11 05:45] LABS: INR 1.42 INR (0.90-1.10)
--- NOTE | 2017-07-11 05:54 | DS ---
<Lynne Lockettalyssa - Last Filed: 07/11/17 11:37> Disposition: Home Health Service Condition: Stable Problem Oriented Discharge Instructions to Patient/Family: Partial Hip Replacement, Care After Additional Patient Instructions (free text): Home Health to draw INR on . Call results to Dr Soto's office. [facility]. Please fax orders and face to face and call report upon discharge. Follow up with Dr. Anderson office 07/19 at 1:00. Follow up with Dr. Soto office 07/15 at 11:15 Prescriptions (Any new or edited meds): Cholecalciferol [Vitamin D] 2,000 unit PO DAILY #30 cap Enoxaparin Sodium [Lovenox] 40 mg SC Q24H 4 Days #4 disp.syrin HYDROcodone/ACETAMINOPHEN [[place] 5-325] 1 tab PO Q4H PRN #40 tab PRN Reason: Pain Magnesium Hydroxide [Milk Of Magnesia] 30 ml PO DAILY PRN 10 Days udc PRN Reason: Constipation Sennosides/Docusate Sodium [Senokot-S] 2 tab PO HS #30 tablet Warfarin Sodium [Coumadin] 5 mg PO DAILY@1800 #30 tablet Complete Home Medications List: Complete Home Medication List: Atorvastatin Calcium 40 mg PO HS 07/08/17 FLUoxetine HCL [Fluoxetine HCl] 20 mg PO DAILY 07/08/17 Levothyroxine Sodium [Levo-T] 112 mcg PO DAILY 07/08/17 Omeprazole 40 mg PO DAILY 07/08/17 Propranolol HCl 20 mg PO DAILY 07/08/17 Ranitidine HCl [Zantac] 300 mg PO HS 07/08/17 Sildenafil Citrate [Viagra] 100 mg PO DAILY PRN 07/08/17 Tamsulosin HCl [Flomax] 1 cap PO HS 07/08/17 Valsartan 320 mg PO DAILY 07/08/17 Cholecalciferol [Vitamin D] 2,000 unit PO DAILY #30 cap 07/11/17 Enoxaparin Sodium [Lovenox] 40 mg SC Q24H 4 Days #4 disp.syrin 07/11/17 HYDROcodone/ACETAMINOPHEN [[place] 5-325] 1 tab PO Q4H PRN #40 tab 07/11/17 Magnesium Hydroxide [Milk Of Magnesia] 30 ml PO DAILY PRN 10 Days udc 07/11/17 Sennosides/Docusate Sodium [Senokot-S] 2 tab PO HS #30 tablet 07/11/17 Warfarin Sodium [Coumadin] 5 mg PO DAILY@1800 #30 tablet 07/11/17 Amb Orders for Discharge: Prothrombin Time Time Frame: 07/14/17, Location: Determined By Patient <Shiraz Wright - Last Filed: 07/12/17 02:43> (1) Hip fracture, right Problem: Acute Qualifiers: Encounter type: initial encounter Fracture type: closed Qualified Code(s) : S72.001A - Fracture of unspecified part of neck of right femur, initial encounter for closed fracture (2) Hypertension Problem: Chronic Qualifiers: Hypertension type: essential hypertension Qualified Code(s): I10 - Essential (primary) hypertension (3) Hyperlipidemia Problem: Chronic (4) Hypothyroidism Problem: Chronic (5) GERD (gastroesophageal reflux disease) Problem: Chronic (6) BPH (benign prostatic hyperplasia) Problem: Chronic Description of Stay: Admit date 07/08/17 81 years old white male adm to the hospital 07/08/17 with reports of right hip pain secondary to mechanical fall while walking to a bar and head injury from the fall sustaining a hematoma. 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 mild age related atrophy. Right frontal scalp hematoma. Pt underwent Percutaneous fixation of right subcapital femoral neck fracture- secondary to Right hip fracture. He tolerated physical therapy and plan for discharge home with home health and follow up with ortho service. per surgeon He will continue with Coumadin and bridge with Lovenox. Today he was seen AOX3 no acute distress and anticipating discharge home. Discharge date 07/11/17 Diagnostics X-ray right hip: mildly impacted fracture right femoral neck CT head:Mild periventricular chronic small vessel ischemia disease. mild age related atrophy. Right frontal scalp hematoma CXR: No acute cardiopulmonary process. Procedures Performed: see notes below List Procedures: 07/08/17 S/p Percutaneous fixation of right subcapital femoral neck fracture- secondary to Right hip fracture Results and Findings: Laboratory Tests 07/08/17 07/08/17 07/09/17 01:23 01:23 05:30 WBC 9.4 5.5 D RBC 4.14 L 3.83 L Hgb 13.7 12.6 L Hct 38.6 L 36.1 L MCV 93.2 94.3 MCH 33.1 H 32.9 H MCHC 35.5 34.9 RDW 13.6 13.6 Plt Count 151 127 L Sodium 136 Plasma Sodium 136 Potassium 3.7 Chloride 101 Carbon Dioxide 23.8 L Anion Gap 14.9 H BUN 20 Creatinine 1.19 07/09/17 07/10/17 07/10/17 05:30 05:30 05:30 WBC 6.1 RBC 3.96 L Hgb 13.2 L Hct 37.2 L MCV 93.9 MCH MCHC RDW Plt Count 153 Sodium 140 137 Plasma Sodium 140 137 Potassium 3.7 3.7 Chloride 107 H Carbon Dioxide 25.2 25.2 Anion Gap 11.5 11.5 BUN 12 11 Creatinine 1.21 1.16 Discharge Location: Home Discharge Activity: Partial-Weight bearing Discharge Diet: General/regular food
[2017-07-11] MEDS: LOSARTAN POTASSIUM 50 MG TABLET PO SCH (08:03)
[2017-07-11] MEDS: FLUoxetine HCL 20 MG CAPSULE PO SCH (08:03)
[2017-07-11] MEDS: LEVOTHYROXINE SODIUM 112 MCG TABLET PO SCH (08:03)
[2017-07-11] MEDS: PANTOPRAZOLE SODIUM 40 MG TABLET.EC PO SCH (08:03)
[2017-07-11] MEDS: PROPRANOLOL HCL 20 MG TABLET PO SCH (08:03)
[2017-07-11] MEDS ORDERED: HYDROmorphone HCL 2 MG/ML VIAL IV PRN (10:00)
[2017-07-11] MEDS: HYDROcodone/ACETAMINOPHEN 1 EACH TABLET PO PRN (11:07)
--- NOTE | 2017-07-11 12:15 | PN ---
Subjective - Date and Time Seen Date: 07/11/17 Time: 12:12 Subjective Narrative: Patient reports he is going home this afternoon. No complaints at this time. Tolerated pain medications well. Appetite good. Objective Objective Narrative: Patient currently up eating lunch. Bandages C/D/I. N/V intact RLE. Calf supple. - Vitals Vitals: Last Vital Signs Temp 37.0 C 07/11/17 11:05 Pulse 53 L 07/11/17 11:05 Resp 12 07/11/17 11:05 BP 144/64 07/11/17 11:05 Pulse Ox 94 07/11/17 11:05 - Abnormal Lab Findings Abnormal Lab Findings: Abnormal Lab Results 07/11/17 Range/Units 05:30 PT 14.2 H (9.0-11.0) Seconds INR (Anticoag Therapy) 1.42 H (0.90-1.10) INR - Exam Constitutional: Present: Alert, Oriented x3, Cooperative, No distress Cauti Physician Documentation - Urinary Catheter Management Urethral (Triana) Date of Insertion: 07/08/17 Time of Insertion: 10:00 Date of Removal: 07/09/17 Time of Removal: 10:06 Assessment/Plan - Problems/Diagnosis (1) Hip fracture, right Problem: Acute Qualifiers: Encounter type: initial encounter Fracture type: closed Qualified Code(s) : S72.001A - Fracture of unspecified part of neck of right femur, initial encounter for closed fracture Narrative: Pain control, home roseline for PT and wound care, anticoagulation for six weeks, follow up in our office 10-14 days for staple removal. Keep incision clean and dry.
[2017-07-11] MEDS: ENOXAPARIN SODIUM 40 MG/0.4 ML SYRG SC SCH (14:11)
[2017-07-11 15:00] VITALS: BP 113/56
== END 2017-07-11 14:50 | disposition home health service (06) | DRG 482 ==
LOC: ER 00:36 → MS 01:51
PROVIDERS: ADMIT Nurse Practitioner; ATTEND Internal Medicine
PROC: 0QH634Z Insertion of Internal Fixation Device into Right Upper Femur, Percutaneous Approach (ICD-10-PCS; principal; 2017-07-08)
DX: S72.011A Unspecified intracapsular fracture of right femur, initial encounter for closed fracture (principal); S00.83XA Contusion of other part of head, initial encounter; W18.09XA Striking against other object with subsequent fall, initial encounter; Z91.81 History of falling; Y92.414 Local residential or business street as the place of occurrence of the external cause; I10 Essential (primary) hypertension; E78.5 Hyperlipidemia, unspecified; E03.9 Hypothyroidism, unspecified; K21.9 Gastro-esophageal reflux disease without esophagitis; Z87.891 Personal history of nicotine dependence
CPT/HCPCS: 27235; 36415; 71045; 73502; 76000; 80048; 80053; 85025; 85027; 85610; 85730; 93005; 97110; 97116; 97161; 97165; 99285; G0481